=== PATIENT | male | born 1995 | race African-American/Black ===

== ENCOUNTER 2021-01-30 21:24 | Emergency (ER) | payer MEDICAID ==
--- NOTE | 2021-01-30 21:26 | EDM.PDOC ---
ED HPI GENERAL MEDICAL PROBLEM - General Chief Complaint: ENT Problem Stated Complaint: TOOTH PAIN Time Seen by Provider: 01/30/21 21:25 Source of Information: Reports: Patient History Limitations: Reports: No Limitations - History of Present Illness INITIAL COMMENTS - FREE TEXT/NARRATIVE: 25 YO AAFrancia PRESENTS TO ER FOR DENTAL PAIN WHICH BEGAN TONIGHT. PT REPORTS HE WAS SEEN BY DENTIST THIS AM AND HAD HIS LEFT 3RD MOLAR EXTRACTED WITHOUT COMPLICATIONS. PT REPORTS HE WASN'T SENT HOME WITHOUT ANY PAIN MEDICATION AND IS HAVING A LOT OF DISCOMFORT THIS EVENING. PT ALSO REPORTS SOME BLEEDING AT THE GUM AROUND THE SURGICAL SITE. PT DENIES SWELLING OF FACE, NO DISCHARGE FROM TOOTH/GUM. 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 ED ROS ENT - Review of Systems Review Of Systems: See Below Constitutional: Reports: No Symptoms HEENT: Reports: Dental Pain Respiratory: Reports: No Symptoms Cardiovascular: Reports: No Symptoms Endocrine: Reports: No Symptoms GI/Abdominal: Reports: No Symptoms : Reports: No Symptoms Musculoskeletal: Reports: No Symptoms Skin: Reports: No Symptoms Neurological: Reports: No Symptoms Psychiatric: Reports: No Symptoms Hematologic/Lymphatic: Reports: No Symptoms Immunologic: Reports: No Symptoms ED EXAM, ENT - Physical Exam Exam: See Below Exam Limited By: No Limitations General Appearance: Alert, WD/WN, No Apparent Distress Ears: Normal External Exam, Normal Canal, Hearing Grossly Normal, Normal TMs Nose: Normal Inspection, Normal Mucousa, No Blood Mouth/Throat: Bleeding, Dental Pain, Dental Tenderness. No: Dental Abcess, Muffled Voice, Uvular Deviation Head: Atraumatic, Normocephalic Neck: Normal Inspection, Supple, Non-Tender, Full Range of Motion Respiratory/Chest: No Respiratory Distress, Lungs Clear, Normal Breath Sounds, No Accessory Muscle Use, Chest Non-Tender Cardiovascular: Normal Peripheral Pulses, Regular Rate, Rhythm, No Edema, No Gallop, No JVD, No Murmur, No Rub GI/Abdominal: Normal Bowel Sounds, Soft, Non-Tender, No Organomegaly, No Distention, No Abnormal Bruit, No Mass Back: Normal Inspection, Full Range of Motion Extremities: Normal Inspection, Normal Range of Motion, Non-Tender, No Pedal Edema, Normal Capillary Refill Neurological: Alert, Oriented, CN II-XII Intact, Normal Cognition, Normal Gait, Normal Reflexes, No Motor/Sensory Deficits Psychiatric: Normal Affect, Normal Mood Skin: Warm, Dry, Intact, Normal Color, No Rash Departure - Departure Time of Disposition: 21:46 Disposition: Home, Self-Care 01 Condition: Fair Clinical Impression: Pain, dental, [place] teeth extracted - Discharge Information Instructions: Acute Pain, Adult Forms: ED Department Discharge Additional Instructions: 1. DISCHARGE HOME 2. HYDROCODONE 10/325 TAKE 1 TABLET BY MOUTH EVERY 4-6 HOURS FOR PAIN NEEDED 3. MOTRIN 600MG EVERY 6 HOURS FOR PAIN 4. FOLLOW UP WITH DENTIST IN AM FOR FURTHER EVALUATION AND TREATMENT 5. RETURN TO ER FOR WORSENING SYMPTOMS - Assessment/Plan Assessment:: 1. DENTAL PAIN POST EXTRACTION Plan: 1. DISCHARGE HOME 2. HYDROCODONE 10/325 TAKE 1 TABLET BY MOUTH EVERY 4-6 HOURS FOR PAIN NEEDED 3. MOTRIN 600MG EVERY 6 HOURS FOR PAIN 4. FOLLOW UP WITH DENTIST IN AM FOR FURTHER EVALUATION AND TREATMENT 5. RETURN TO ER FOR WORSENING SYMPTOMS
[2021-01-30] MEDS: Ketorolac 60 MG/2 ML SDV IM ONE (21:53)
[2021-01-30] MEDS: Acetaminophen/HYDROcodone 325-10 MG Tab PO ONE (21:59)
== END 2021-01-30 22:06 | disposition home or self-care (01) ==
LOC: KA.ED 21:24
DX: K08.89 Other specified disorders of teeth and supporting structures (principal); Z98.818 Other dental procedure status
CPT/HCPCS: 96372; 99283; A9270-GY; J1885

== ENCOUNTER 2021-03-10 19:08 | Emergency (ER) | payer MEDICAID ==
[2021-03-10] MEDS ORDERED: Ketorolac 60 MG/2 ML SDV IM ONE (19:41)
--- NOTE | 2021-03-10 19:41 | EDM.PDOC ---
ED HPI GENERAL MEDICAL PROBLEM - General Chief Complaint: ENT Problem Stated Complaint: JAW/TOOTH PAIN Time Seen by Provider: 03/10/21 19:20 Source of Information: Reports: Patient History Limitations: Reports: No Limitations - History of Present Illness INITIAL COMMENTS - FREE TEXT/NARRATIVE: 25 YO WM PRESENTS TO ER COMPLAINING OF LEFT LOWER 2ND MOLAR PAIN WHICH BEGAN TODAY. PT REPORTS HE WAS SEEN BY HIS DENTIST 1 MONTH AGO FOR A WISDOM TOOTH EXTRACTION AND NOW THE TOOTH NEXT TO THE EXTRACTION SITE IS PAINFUL. PT DENIES ANY GUM SWELLING OR FACIAL SWELLING. PT DENIES FEVER/CHILLS, NO HEADACHE AND NO DRAINAGE OR PAIN FROM EXTRACTION SITE. 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 Pain Score (Numeric/FACES): 10 - Related Data Allergies Allergy/AdvReac Type Severity Reaction Status Date / Time morphine Allergy Other Verified 01/31/21 10:23 Home Meds: Home Meds Penicillin V Potassium [Veetids] 500 mg PO Q8H #21 tab 03/10/21 [Rx] busPIRone [Buspar] 5 mg PO BID PRN 03/10/21 [History] traMADol [Ultram] 50 mg PO Q6H PRN #10 tab 03/10/21 [Rx] Past Medical History Genitourinary History: Reports: Hydronephrosis Other Genitourinary History: hydronephrosis as a baby, had a minor surgery for it - Infectious Disease History Infectious Disease History: Reports: Novel Coronavirus Social & Family History - Caffeine Use Caffeine Use: Reports: None ED ROS ENT - Review of Systems Review Of Systems: See Below Constitutional: Reports: No Symptoms HEENT: Reports: Dental Pain Respiratory: Reports: No Symptoms Cardiovascular: Reports: No Symptoms Endocrine: Reports: No Symptoms GI/Abdominal: Reports: No Symptoms : Reports: No Symptoms Musculoskeletal: Reports: No Symptoms Skin: Reports: No Symptoms Neurological: Reports: No Symptoms Psychiatric: Reports: No Symptoms Hematologic/Lymphatic: Reports: No Symptoms Immunologic: Reports: No Symptoms ED EXAM, ENT - Physical Exam Exam: See Below Exam Limited By: No Limitations General Appearance: Alert, WD/WN, No Apparent Distress Ears: Normal External Exam, Normal Canal, Hearing Grossly Normal, Normal TMs Nose: Normal Inspection, Normal Mucousa, No Blood Mouth/Throat: Dental Pain, Dental Tenderness. No: Dental Abcess Head: Atraumatic, Normocephalic Neck: Normal Inspection, Supple, Non-Tender, Full Range of Motion Respiratory/Chest: No Respiratory Distress, Lungs Clear, Normal Breath Sounds, No Accessory Muscle Use, Chest Non-Tender Cardiovascular: Normal Peripheral Pulses, Regular Rate, Rhythm, No Edema, No Gallop, No JVD, No Murmur, No Rub Neurological: Alert, Oriented, CN II-XII Intact, Normal Cognition, Normal Gait, Normal Reflexes, No Motor/Sensory Deficits Psychiatric: Normal Affect, Normal Mood Skin: Warm, Dry, Intact, Normal Color, No Rash Lymphatic: No Adenopathy Course - Vital Signs Last Recorded V/S: Last Vital Signs Temp 96.8 F L 03/10/21 19:10 Pulse 65 03/10/21 19:10 Resp 20 03/10/21 19:10 BP 123/100 H 03/10/21 19:10 Pulse Ox 99 03/10/21 19:10 Departure - Departure Time of Disposition: 19:49 Disposition: Home, Self-Care 01 Condition: Good Clinical Impression: Dental caries - Discharge Information Prescriptions: traMADol [Ultram] 50 mg PO Q6H PRN #10 tab PRN Reason: Pain Penicillin V Potassium [Veetids] 500 mg PO Q8H #21 tab Instructions: Dental Caries, Adult Referrals: Shira Recinos MD [Primary Care Provider] - Forms: ED Department Discharge Additional Instructions: 1. DISCHARGE HOME 2. MOTRIN 600MG EVERY 6 HOURS X 5 DAYS 3. PEN VEE K 500MG EVERY 8 HOURS X 7 DAYS 4. ULTRAM 50MG TAKE 1-2 TABLETS EVERY 6 HOURS FOR PAIN NEEDED 5. FOLLOW UP WITH DENTIST FOR FURTHER EVALUATION AND TREATMENT Sepsis Event Note (ED) - Focused Exam Vital Signs: Vital Signs Temp Pulse Resp BP Pulse Ox 03/10/21 19:10 96.8 F L 65 20 123/100 H 99 - Assessment/Plan Assessment:: 1. DENTAL CARIES Plan: 1. DISCHARGE HOME 2. MOTRIN 600MG EVERY 6 HOURS X 5 DAYS 3. PEN VEE K 500MG EVERY 8 HOURS X 7 DAYS 4. ULTRAM 50MG #10 TAKE 1-2 TABLETS EVERY 6 HOURS FOR PAIN NEEDED 5. FOLLOW UP WITH DENTIST FOR FURTHER EVALUATION AND TREATMENT
[2021-03-10] MEDS ORDERED: Penicillin V Potassium 250 MG Tab PO ONE (19:45)
== END 2021-03-10 20:00 | disposition home or self-care (01) ==
LOC: KA.ED 19:08
DX: K02.9 Dental caries, unspecified (principal); Z88.5 Allergy status to narcotic agent; Z86.16 Personal history of COVID-19; Z98.818 Other dental procedure status
CPT/HCPCS: 96372; 99283; A9270-GY; J1885

== ENCOUNTER 2021-03-12 12:36 | Emergency (ER) | payer MEDICAID ==
--- NOTE | 2021-03-12 13:22 | EDM.PDOC ---
ED HPI GENERAL MEDICAL PROBLEM - General Chief Complaint: General Time Seen by Provider: 03/12/21 12:54 Source of Information: Reports: Patient History Limitations: Reports: No Limitations - History of Present Illness INITIAL COMMENTS - FREE TEXT/NARRATIVE: Patient presents with pain in left sinus/cheek and left lower molar. This has been going on for about 4 days. He was here in ER 2 days ago with the same symptoms but got worse last night. Yesterday he started the Penicillin V 500 tid. Six weeks ago he had left lower posterior molar extracted and is scheduled for the molar next to it to be extracted in 2 weeks. The tooth is painful but now the sinus/airway is more painful. The pain is worse with nasal inhalation. He denies inhaled drug use or use of chronic inhalers. He did just today get a nasal spray to moisten airway. Left Nose Pain Score (Numeric/FACES): 10 - Related Data Allergies Allergy/AdvReac Type Severity Reaction Status Date / Time almond Allergy Edema Verified 03/12/21 12:43 morphine Allergy Other Verified 03/12/21 12:43 Home Meds: Home Meds Penicillin V Potassium [Veetids] 500 mg PO Q8H #21 tab 03/10/21 [Rx] busPIRone [Buspar] 5 mg PO BID PRN 03/10/21 [History] traMADol [Ultram] 50 mg PO Q6H PRN #10 tab 03/10/21 [Rx] Past Medical History Genitourinary History: Reports: Hydronephrosis Other Genitourinary History: hydronephrosis as a baby, had a minor surgery for it Psychiatric History: Reports: Anxiety - Infectious Disease History Infectious Disease History: Reports: Novel Coronavirus - Past Surgical History HEENT Surgical History: Reports: Other (See Below) Other HEENT Surgeries/Procedures: [place] tooth out Social & Family History - Tobacco Use Tobacco Use Status *Q: Former Tobacco User Used Tobacco, but Quit: Yes Month/Year Tobacco Last Used: quit 2 weeks ago - Caffeine Use Caffeine Use: Reports: Coffee - Recreational Drug Use Recreational Drug Use: No ED ROS GENERAL - Review of Systems Review Of Systems: See Below Constitutional: Denies: Fever, Chills, Malaise, Weakness HEENT: Reports: Ear Pain (left ear hurts a little too), Nose Pain, Rhinitis (nose running more now with the pain). Denies: Ear Discharge, Nosebleed, Sinus Problem (not chronically), Throat Pain, Vision Change Respiratory: Denies: Shortness of Breath, Cough Cardiovascular: Denies: Chest Pain, Lightheadedness, Syncope GI/Abdominal: Denies: Abdominal Pain, Vomiting Musculoskeletal: Denies: Neck Pain, Shoulder Pain, Arm Pain, Back Pain, Hand Pain Skin: Denies: Cyanosis, Jaundice, Mottled, Pallor, Diaphoresis Neurological: Denies: Confusion, Dizziness, Headache, Seizure, Syncope, Trouble Speaking, Difficulty Walking Psychiatric: Denies: Agitation, Anxiety, Confusion ED EXAM, GENERAL - Physical Exam Exam: See Below Exam Limited By: No Limitations General Appearance: Alert, WD/WN, No Apparent Distress Eye Exam: Bilateral Eye: EOMI, Normal Inspection, PERRL Ears: Normal External Exam, Normal Canal, Hearing Grossly Normal, Normal TMs Nose: Normal Mucosa, No Blood, Nasal Tenderness, Nasal Drainage (mild). No: Nasal Deformity, Nasal Flaring Throat/Mouth: Normal Lips, Normal Oropharynx, Normal Voice, No Airway Compromise, Other (lower left molar/gum is tender to palpation; no significant inflammation or erythema) Head: Atraumatic, Normocephalic Neck: Lymphadenopathy (L) (tender and mildly swollen). No: Lymphadenopathy (R) Respiratory/Chest: No Respiratory Distress, Lungs Clear, Normal Breath Sounds, No Accessory Muscle Use Cardiovascular: Regular Rate, Rhythm, No Murmur Back Exam: Normal Inspection, Full Range of Motion Extremities: Normal Inspection, Normal Range of Motion Neurological: Alert, Oriented, Normal Cognition, No Motor/Sensory Deficits Psychiatric: Normal Affect, Normal Mood Skin Exam: Warm, Dry, Intact, Normal Color, No Rash Course - Vital Signs Last Recorded V/S: Last Vital Signs Temp 97.6 F 03/12/21 12:44 Pulse 74 03/12/21 13:00 Resp 18 03/12/21 13:00 BP 133/79 03/12/21 13:00 Pulse Ox 99 03/12/21 13:00 - Re-Assessments/Exams Free Text/Narrative Re-Assessment/Exam: 03/12/21 13:27 Discussed with patient that I feel this is most likely sinus inflammation possibly related to the infected tooth. I advised NSAID along with a sinus rinse such as nettipot or lavage or warm salt water gargle 3-4 times a day. Also continue the penicillin. Recommended ENT vs PCP follow up if worsening or not resolving in a few days. Patient discharged to home in stable condition. Departure - Departure Time of Disposition: 13:11 Disposition: Home, Self-Care 01 Condition: Good Clinical Impression: Tooth pain, Pain of maxillary sinus - Discharge Information Referrals: Shira Recinos MD [Primary Care Provider] - Additional Instructions: Drink 8 cups of water daily. Continue the Penicillin as directed. Take Ibuprofen 600 mg three times a day until this resolves. Use your Tramadol as directed as needed for pain control. Follow up with Ear, Nose, Throat provider or your PCP if this worsens, or isn't improving in a few days. Sepsis Event Note (ED) - Evaluation Sepsis Screening Result: No Definite Risk - Focused Exam Vital Signs: Vital Signs Temp Pulse Resp BP Pulse Ox 03/12/21 13:00 74 18 133/79 99 03/12/21 12:45 66 16 129/86 97 03/12/21 12:44 97.6 F 72 18 130/85 99
== END 2021-03-12 13:15 | disposition home or self-care (01) ==
LOC: KA.ED 12:36
DX: K08.89 Other specified disorders of teeth and supporting structures (principal); J34.89 Other specified disorders of nose and nasal sinuses; Z88.5 Allergy status to narcotic agent; Z91.018 Allergy to other foods; Z86.16 Personal history of COVID-19; Z87.891 Personal history of nicotine dependence
CPT/HCPCS: 99283

== ENCOUNTER 2021-07-01 13:18 | Emergency (ER) | payer MEDICAID ==
--- NOTE | 2021-07-01 14:04 | EDM.PDOC ---
ED HPI GENERAL MEDICAL PROBLEM - General Chief Complaint: Abdominal Pain Stated Complaint: GROIN PAIN Time Seen by Provider: 07/01/21 13:30 Source of Information: Reports: Patient History Limitations: Reports: No Limitations - History of Present Illness INITIAL COMMENTS - FREE TEXT/NARRATIVE: 25 YO WM PRESENTS TO ER COMPLAINING OF RECTAL PAIN WITH BOWEL MOVEMENT WHICH BEGAN 2 WEEKS AGO. PT REPORTS SOME PAIN WHEN WIPING AFTER BOWEL MOVEMENT. PT REPORTS 1 EPISODE OF BLOOD WITH BOWEL MOVEMENT. PT ALSO COMPLAINING OF LEFT TESTICULAR PAIN WHICH HAS RESOLVED PRIOR TO ARRIVAL BUT STATES IT BECOMES MORE PAINFUL WITH LIFTING ANY MOVING QUICKLY. PT DENIES ABDOMINAL PAIN, NO DIARRHEA/CONSTIPATION. PT DENIES FEVER/CHILLS, NO PENILE DISCHARGE OR PAINFUL URINATION. PT DENIES DISCOMFORT WITH EJACULATION OR PAINFUL INTERCOURSE. Onset Date: 06/29/21 Duration: Day(s): (2) Quality: Reports: Ache Severity: Mild Improves with: Reports: None Worsens with: Reports: None Associated Symptoms: Reports: No Other Symptoms. Denies: Fever/Chills, Nausea/Vomiting Rectal Pain Score (Numeric/FACES): 7 - Related Data Allergies Allergy/AdvReac Type Severity Reaction Status Date / Time almond Allergy Edema Verified 07/01/21 13:27 morphine Allergy Other Verified 07/01/21 13:27 Home Meds: Home Meds busPIRone [Buspar] 5 mg PO BID PRN 03/10/21 [History] Hydrocortisone [Hydrocortisone 2.5% Crm] 30 gm RECTAL TID PRN #30 supp.rect 07/01/21 [Rx] Lisdexamfetamine [Vyvanse] 30 mg PO DAILY 07/01/21 [History] Past Medical History Genitourinary History: Reports: Hydronephrosis Other Genitourinary History: hydronephrosis as a baby, had a minor surgery for it Psychiatric History: Reports: Anxiety - Infectious Disease History Infectious Disease History: Reports: Novel Coronavirus - Past Surgical History HEENT Surgical History: Reports: Oral Surgery, Other (See Below) Other HEENT Surgeries/Procedures: [place] tooth out Male Surgical History: Reports: None Social & Family History - Family History Family Medical History: No Pertinent Family History - Caffeine Use Caffeine Use: Reports: Coffee ED ROS GENERAL - Review of Systems Review Of Systems: See Below Constitutional: Reports: No Symptoms HEENT: Reports: No Symptoms Respiratory: Reports: No Symptoms Cardiovascular: Reports: No Symptoms Endocrine: Reports: No Symptoms GI/Abdominal: Reports: No Symptoms : Reports: Pain. Denies: Discharge, Dysuria, Flank Pain, Frequency, Hematuria, Incontinence, Urgency, Urinary Retention Musculoskeletal: Reports: No Symptoms Skin: Reports: No Symptoms Neurological: Reports: No Symptoms ED EXAM, GENERAL - Physical Exam Exam: See Below Exam Limited By: No Limitations General Appearance: Alert, WD/WN, No Apparent Distress Head: Atraumatic, Normocephalic Neck: Normal Inspection, Supple, Non-Tender, Full Range of Motion Respiratory/Chest: No Respiratory Distress, Lungs Clear, Normal Breath Sounds, No Accessory Muscle Use, Chest Non-Tender Cardiovascular: Normal Peripheral Pulses, Regular Rate, Rhythm, No Edema, No Gallop, No JVD, No Murmur, No Rub GI/Abdominal: Normal Bowel Sounds, Soft, Non-Tender, No Organomegaly, No Distention, No Abnormal Bruit, No Mass (Male) Exam: No Hernia, Normal Inspection, Normal Prostate, Testicular Tenderness (L). No: Hernia, Rash, Scrotal Swelling, Scrotum Tenderness (L), Scrotum Tenderness (R), Testicular Mass, Urethral Discharge Rectal (Males) Exam: Normal Exam, Normal Rectal Tone, Prostate Normal, Tenderness. No: Bloody Stool, Decreased Rectal Tone, Rectal Fissure Back Exam: Normal Inspection, Full Range of Motion, NT Extremities: Normal Inspection, Normal Range of Motion, Non-Tender, Normal Capillary Refill, No Pedal Edema Neurological: Alert, Oriented, CN II-XII Intact, Normal Cognition, Normal Gait, No Motor/Sensory Deficits Psychiatric: Normal Affect, Normal Mood Skin Exam: Warm, Dry, Intact, Normal Color, No Rash Lymphatic: No Adenopathy Course - Vital Signs Last Recorded V/S: Last Vital Signs Temp 99.6 F 07/01/21 13:27 Pulse 97 07/01/21 13:27 Resp 16 07/01/21 13:27 BP 137/78 07/01/21 13:27 Pulse Ox 99 07/01/21 13:27 - Orders/Labs/Meds Labs: Laboratory Tests 07/01/21 Range/Units 13:45 Specimen Type Urincc Urine Color Yellow (YELLOW) Urine Appearance Clear (CLEAR) Urine pH 7.5 (5.0-9.0) Ur Specific [place] 1.020 (1.005-1.030) Urine Protein Negative (NEGATIVE) mg/dL Urine Glucose (UA) Negative (NEGATIVE) mg/dL Urine Ketones Negative (NEGATIVE) mg/dL Urine Occult Blood Negative (NEGATIVE) Urine Nitrite Negative (NEGATIVE) Urine Bilirubin Negative (NEGATIVE) Urine Urobilinogen 0.2 (0.2-1.0) E.U./dL Ur Leukocyte Esterase Negative (NEGATIVE) Urine RBC Not seen (0-5) /HPF Urine WBC Not seen (0-5) /HPF Ur Epithelial Cells Few /LPF Urine Bacteria Rare (NONE TO FEW) /HPF Urine Mucus Rare H (NEGATIVE) /LPF Departure - Departure Time of Disposition: 14:12 Disposition: Home, Self-Care 01 Condition: Good Clinical Impression: Epididymitis Hemorrhoids Qualifiers: Hemorrhoid type: unspecified Qualified Code(s): K64.9 - Unspecified hemorrhoids - Discharge Information Prescriptions: Hydrocortisone [Hydrocortisone 2.5% Crm] 30 gm RECTAL TID PRN #30 supp.rect PRN Reason: Pain Instructions: Hemorrhoids, [id number], Epididymitis Referrals: Liset Cruz MD [Primary Care Provider] - Forms: ED Department Discharge, ED Return to Work/School Form Additional Instructions: 1. DISCHARGE HOME 2. HYDROCORTISONE 2.5% RECTAL SUPPOSITORY 3. RETURN TO ER FOR WORSENING SYMPTOMS 4. FOLLOW UP IN CLINIC FOR FURTHER EVALUATION AND TREATMENT Sepsis Event Note (ED) - Evaluation Sepsis Screening Result: No Definite Risk - Focused Exam Vital Signs: Vital Signs Temp Pulse Resp BP Pulse Ox 07/01/21 13:27 99.6 F 97 16 137/78 99 - Assessment/Plan Assessment:: 1. INTERNAL HEMORRHOID 2. EPIDIDYMITIS Plan: 1. DISCHARGE HOME 2. HYDROCORTISONE 2.5% RECTAL SUPPOSITORY 3. RETURN TO ER FOR WORSENING SYMPTOMS 4. FOLLOW UP IN CLINIC FOR FURTHER EVALUATION AND TREATMENT
== END 2021-07-01 14:30 | disposition home or self-care (01) ==
LOC: KA.ED 13:18
DX: N45.1 Epididymitis (principal); K64.9 Unspecified hemorrhoids; Z91.018 Allergy to other foods; Z88.5 Allergy status to narcotic agent; Z86.16 Personal history of COVID-19
CPT/HCPCS: 81001; 99283

== ENCOUNTER 2025-06-20 17:05 | Emergency (ER) | payer MEDICAID, OTHER ==
[2025-06-20] MEDS: Bacitracin/Hydrocortisone/Neomycin/Polymyxin Ophth Oint 3.5 GM Tube EYERT SCH (17:55)
== END 2025-06-20 18:05 | disposition home or self-care (01) ==
LOC: KA.ED 17:05
DX: S05.01XA Injury of conjunctiva and corneal abrasion without foreign body, right eye, initial encounter (principal); Z91.018 Allergy to other foods; Z88.5 Allergy status to narcotic agent; Z86.16 Personal history of COVID-19; Z79.899 Other long term (current) drug therapy; Z20.2 Contact with and (suspected) exposure to infections with a predominantly sexual mode of transmission; X58.XXXA Exposure to other specified factors, initial encounter; Y93.89 Activity, other specified
CPT/HCPCS: 99283; A9270-GY